=== PATIENT | male | born 1990 | race Two or more races ===

== ENCOUNTER 2018-04-18 19:14 | Emergency (ER) | payer MEDICAID ==
[~2018-04-18] VITALS: Ht 172.7 cm; Wt 61.4 kg
[2018-04-18 19:56] LABS: BASOPHILS # (AUTO) 0.07 x10^3/uL (0-0.1); BASOPHILS % (AUTO) 1 % (0-1); EOSINOPHILS # (AUTO) 0.47 x10^3/uL (0-0.4); EOSINOPHILS % (AUTO) 4 % (1-7); LYMPHOCYTES # (AUTO) 3.91 x10^3/uL (1-3.4); LYMPHOCYTES % (AUTO) 36 % (22-44); MD NO; MEAN CORPUSCULAR HEMOGLOBIN 31.3 pg (27.5-34.5); MEAN CORPUSCULAR HGB CONC 33.5 g/dL (33.2-36.2); MEAN CORPUSCULAR VOLUME 93.4 fL (81-97); MEAN PLATELET VOLUME 8.5 fL (7.4-10.4); MONOCYTES # (AUTO) 1.07 x10^3/uL (0.2-0.8); MONOCYTES % (AUTO) 10 % (2-9); NEUTROPHILS # (AUTO) 5.47 x10^3/uL (1.8-6.8); NEUTROPHILS % (AUTO) 50 % (42-75); PLATELET COUNT 335 x10^3/uL (130-400); RED CELL DISTRIBUTION WIDTH 14.1 % (9.4-14.8)
[2018-04-18 19:58] LABS: ALANINE AMINOTRANSFERASE 28 U/L (12-78); ALBUMIN 3.4 g/dL (3.4-5.0); ANION GAP 9 mmol/L (5-15); CHLORIDE 111 mmol/L (98-107); CREATININE 0.73 mg/dL (0.7-1.3)
[2018-04-18 20:00] LABS: ALKALINE PHOSPHATASE 77 U/L (45-117); BILIRUBIN,TOTAL 0.3 mg/dL (0.2-1.0); TOTAL PROTEIN 6.6 g/dL (6.4-8.2)
[2018-04-18 20:11] LABS: MICROSCOPIC INDICATED
[2018-04-18 20:12] LABS: CULTURE INDICATED? YES
[2018-04-18 21:17] VITALS: BP 111/66
== END 2018-04-18 21:20 | disposition home or self-care (01) ==
LOC: ED 21:08
DX: L02.414 Cutaneous abscess of left upper limb (principal); K62.5 Hemorrhage of anus and rectum; R82.99 Other abnormal findings in urine
CPT/HCPCS: 36415; 80053; 81001; 83690; 85025; 87086; 99284